=== PATIENT | male | born 1945 | race Caucasian/White ===

== ENCOUNTER → 2020-12-09 | Outpatient (CLI) | payer MEDICARE, OTHER ==
[~2020-12-09] MED LIST: CLARITIN10 MG PO; DETROL LA 4 MG C4 MG PO; ECOTRIN81 MG PO; ELIQUIS2.5 MG PO; FEOSOL325 MG PO; FLOMAX0.4 MG PO; GLUCOPHAGE850 MG PO; HYZAAR 100-12.1 EACH PO; K-DUR TAB 10 M10 MEQ PO; LASIX40 MG PO; LIPITOR TAB 2020 MG PO; METOPROLOL TART25 MG PO; MIRALAX17 GM PO; NEURONTIN 100100 MG PO; NORCO 10-325 T1 EACH PO; NORVASC 5 MG TAB5 MG PO; SYNTHROID75 MCG PO; SYNTHROID88 MCG PO; TRADJENTA5 MG PO; ZANAFLEX4 MG PO
== END ==
LOC: EXRD 11:17
DX: J96.11 Chronic respiratory failure with hypoxia (principal)
CPT/HCPCS: 36600; 71045; 82803